=== PATIENT | male | born 1960 | race Caucasian/White ===

== ENCOUNTER 2018-05-26 08:17 | Emergency (ER) | payer MEDICAID ==
[~2018-05-26] VITALS: Ht 180.3 cm; Wt 72.6 kg
--- NOTE | 2018-05-26 08:35 | NUR ---
LINE STARTED ON R AC G 18, BLOOD DRAWN FROM LINE AND SENT TO LAB
[2018-05-26 08:59] LABS: BASOPHILS % (AUTO) 0.3 % (0.0-2.0); EOSINOPHILS % (AUTO) 0.9 % (0.0-6.0); HEMATOCRIT 46 % (39-51); HEMOGLOBIN 15.7 g/dL (13.5-17.5); MEAN CORPUSCULAR HEMOGLOBIN 32 PG (26.0-33.0); MEAN CORPUSCULAR HGB CONC 35 g/dl (31.0-36.0); MEAN CORPUSCULAR VOLUME 91 fL (80-96); MONOCYTES # (AUTO) 0.8 /CMM (0.1-1.30); MONOCYTES % (AUTO) 11.4 % (2.0-12.0); NEUTROPHILS # (AUTO) 4.1 /CMM (1.8-8.9); NEUTROPHILS % (AUTO) 59.4 % (43.0-81.0); PLATELET COUNT (AUTO) 169 /CMM (150-450); RDW COEFFICIENT OF VARIATION 12.4 (11.5-15.0); RED BLOOD CELL COUNT(AUTO) 4.98 MIL/uL (4.5-6.0)
[2018-05-26] MEDS ORDERED: ASPIRIN 325 MG TABLET PO ONE (09:00)
[2018-05-26 09:04] LABS: CARBON DIOXIDE 30 mmol/L (21-32); CHLORIDE 104 mmol/L (98-107); GLUCOSE 110 mg/dL (74-106); SODIUM SERUM 138 mmol/L (136-145); UREA NITROGEN, BLOOD 11 mg/dL (7-18)
[2018-05-26 09:08] LABS: INR 0.93 (0.85-1.15)
[2018-05-26 09:13] LABS: TROPONIN I < 0.017 ng/mL (0.00-0.056)
[2018-05-26] MEDS ORDERED: ASPIRIN 325 MG TABLET ONE (09:15)
--- NOTE | 2018-05-26 09:20 | NUR ---
INGE AT BS.
--- NOTE | 2018-05-26 09:39 | NUR ---
Patient discharged to home in stable condition. Written and verbal after care instructions given. Patient verbalizes understanding of instruction.
--- NOTE | 2018-05-26 09:48 | NUR ---
IV removed. Catheter intact and site benign. Pressure and 4x4 applied to site. No bleeding noted.
[2018-05-26 09:51] VITALS: BP 135/75
== END 2018-05-26 09:51 | disposition home or self-care (01) ==
LOC: ER 08:18
DX: R07.89 Other chest pain (principal)
CPT/HCPCS: 36415; 71045; 80048; 84484; 85025; 85730; 93005; 99285; A4606; Z7610

== ENCOUNTER 2018-11-17 01:27 | Emergency (ER) | END 2018-11-17 07:18 | disposition home or self-care (01) | DX: R07.89 Other chest pain (principal); R94.31 Abnormal electrocardiogram [ECG] [EKG] ==